=== PATIENT | male | born 2000 | race Asian ===

== ENCOUNTER 2023-01-17 02:37 | Emergency (ER) | payer OTHER ==
--- NOTE | 2023-01-17 02:52 | ED Physician Documentation ---
PD HPI CHEST PAIN - Stated complaint Stated Complaint: CHEST PX - History obtained from History obtained from: Patient - Additional information Additional information: Patient presents from home by private vehicle for left-sided chest pain that does not radiate. States it feels like it is inside of his chest. States that yesterday before going to bed he had an episode of chest pain but went to sleep. Today at 3:00 he had an episode of chest pain and it concerned him so he came to the emergency department for evaluation. Denies medical history. Denies family history of heart disease. No medications taken prior to arrival. Review of Systems Constitutional: denies: Fever, Chills Cardiac: reports: Chest pain / pressure. denies: Palpitations, Pedal edema, Calf pain Respiratory: denies: Dyspnea, Cough, Wheezing : denies: Dysuria, Frequency Musculoskeletal: denies: Neck pain, Back pain, Extremity pain PD PAST MEDICAL HISTORY - Present Medications Home Medications: Ambulatory Orders Medication Instructions Recorded Confirmed No Known Home Medications 01/17/23 01/17/23 - Allergies Allergies/Adverse Reactions: Allergies Allergy/AdvReac Type Severity Reaction Status Date / Time Penicillins Allergy Hives Verified 01/17/23 03:04 PD ED PE NORMAL - Vitals Vital signs reviewed: Yes - General General: Alert and oriented X 3, No acute distress, Well developed/nourished - HEENT HEENT: Atraumatic - Neck Neck: Supple, no meningeal sign - Cardiac Cardiac: RRR, No murmur, Strong equal pulses - Respiratory Respiratory: No respiratory distress, Clear bilaterally - Abdomen Abdomen: Soft, Non tender, Non distended - Derm Derm: Normal color, Warm and dry, No rash - Extremities Extremities: No deformity, No tenderness to palpate, Normal ROM s pain, No edema - Neuro Neuro: Alert and oriented X 3, cushion sewer 2-12 intact, No motor deficit, Normal speech - Psych Psych: Normal mood, Normal affect Results - Vitals Vitals: Vital Signs - 24 hr 01/17/23 01/17/23 01/17/23 02:42 02:55 03:31 Temperature 36.1 C L Heart Rate 87 73 Respiratory 22 21 Rate Blood Pressure 161/95 H 135/92 H Blood Pressure 161/95 H [Left] Blood Pressure 144/79 H [Right] O2 Saturation 99 100 Oxygen O2 Source Room air - EKG (time done) 0249 EKG releavant findings:: EKG personally interpreted by author of this note. Relevant findings are: Rate: Rate (enter#) (85) Rhythm: NSR [place]: Normal Intervals: Normal HI QRS: Normal Ischemia: Normal ST segments - Labs Labs: Laboratory Tests 01/17/23 01/17/23 02:57 02:57 WBC 10.2 RBC 4.77 Hgb 14.0 Hct 42.2 MCV 88.5 MCH 29.4 MCHC 33.2 RDW 12.0 Plt Count 276 MPV 10.1 Neut # (Auto) 4.7 Lymph # (Auto) 4.5 H Graves # (Auto) 0.8 Eos # (Auto) 0.1 Baso # (Auto) 0.1 Absolute Nucleated RBC 0.00 Nucleated RBC % 0.0 Sodium 138 Potassium 3.5 Chloride 105 Carbon Dioxide 28 Anion Gap 5.0 L BUN 19 Creatinine 1.0 Estimated GFR (MDRD) 93 Glucose 100 Calcium 9.9 Total Bilirubin 0.3 AST 14 ALT 14 Alkaline Phosphatase 92 Troponin I High Sens < 2.3 L Total Protein 7.6 Albumin 4.5 Globulin 3.1 Albumin/Globulin Ratio 1.5 PD Medical Decision Making - ED course Complexity details: reviewed results, re-evaluated patient, considered differential, d/w patient ED course: Atypical chest pain. Heart score is 0. EKG sinus rhythm without concerning findings. Laboratory work is unremarkable. Chest x-ray negative for acute findings. Patient resting comfortably in bed, texting on his cell phone. Patient advised of lab and imaging results, I counseled that I do not know the specific cause of his chest pain but it does not appear to be cardiac in nature at this time. Recommended decrease vaping, follow-up with primary care physician. Departure - Departure Disposition: Home, Self Care Clinical Impression: Chest pain Condition: Stable Instructions: ED Chest Pain NonCardiac Comments: FOLLOW UP WITH YOUR PRIMARY CARE DOCTOR. AVOID EATING 2 HOURS PRIOR TO GOING TO BED. AVOID VAPING. Forms: PCP List
[2023-01-17 03:02] LABS: BASOPHILS # (AUTO) 0.1 10^3/uL (0.0-0.1); BASOPHILS % (AUTO) 0.5 %; EOSINOPHILS # (AUTO) 0.1 10^3/uL (0.0-0.7); EOSINOPHILS % (AUTO) 1.3 %; HCT - HEMATOCRIT 42.2 % (42.0-52.0); LYMPHOCYTES # (AUTO) 4.5 10^3/uL (1.5-3.5); LYMPHOCYTES % (AUTO) 44.1 %; MEAN CORPUSCULAR HEMOGLOBIN 29.4 pg (27.0-31.0); MEAN CORPUSCULAR HGB CONC 33.2 g/dL (32.0-36.0); MEAN CORPUSCULAR VOLUME 88.5 fL (80.0-94.0); MEAN PLATELET VOLUME 10.1 fL (7.4-11.4); MONOCYTES # (AUTO) 0.8 10^3/uL (0.0-1.0); MONOCYTES % (AUTO) 7.5 %; NEUTROPHILS # (AUTO) 4.7 10^3/uL (1.5-6.6); NEUTROPHILS % (AUTO) 46.3 %; PLT - PLATELET COUNT 276 10^3/uL (130-450); RED BLOOD COUNT 4.77 10^6/uL (4.70-6.10); WHITE BLOOD COUNT 10.2 x10^3/uL (4.8-10.8)
[2023-01-17 03:20] LABS: ALBUMIN 4.5 g/dL (3.2-5.5); ALBUMIN/GLOBULIN RATIO 1.5 (1.0-2.2); ALKALINE PHOSPHATASE 92 IU/L (42-121); ALT ALANINE AMINOTRANSFERASE 14 IU/L (10-60); AST ASPARTATE AMINOTRANSFERASE 14 IU/L (10-42); BILIRUBIN,TOTAL 0.3 mg/dL (0.2-1.0); BUN - BLOOD UREA NITROGEN 19 mg/dL (6-20); CALCIUM 9.9 mg/dL (8.5-10.3); CARBON DIOXIDE - CO2 28 mmol/L (21-32); CHLORIDE 105 mmol/L (101-111); GFR - MDRD 93 (>89); GLUCOSE 100 mg/dL (74-104); POTASSIUM 3.5 mmol/L (3.5-4.5); SODIUM 138 mmol/L (135-145); TOTAL PROTEIN 7.6 g/dL (6.4-8.9)
[2023-01-17 03:41] LABS: TROPONIN I HIGH SENSITIVITY < 2.3 ng/L (2.3-19.7)
[2023-01-17 03:43] VITALS: BP 135/92
--- NOTE | 2023-01-17 08:00 | XRAY Report ---
PROCEDURE: Chest 1 View X-Ray INDICATIONS: CHEST PAIN TECHNIQUE: One view of the chest was acquired. COMPARISON: None. FINDINGS: Surgical changes and devices: None. Lungs and pleura: No pleural effusions or pneumothorax. Lungs are clear. Mediastinum: Mediastinal contours appear normal. Heart size is normal. Bones and chest wall: No suspicious bony lesions. Overlying soft tissues appear unremarkable. IMPRESSION: No acute cardiopulmonary process. There is no significant discrepancy when compared with the preliminary overnight report. Reviewed by: Hardik Perez MD on 01/17/2023 7:59 AM PDT Approved by: Hardik Perez MD on 01/17/2023 7:59 AM PDT Station ID: [id number]
== END 2023-01-17 04:00 | disposition home or self-care (01) ==
LOC: ED 02:37
DX: R07.9 Chest pain, unspecified (principal)
CPT/HCPCS: 36415; 80053; 84484; 85025; 93005; 99283; 99284